=== PATIENT | male | born 1970 | race Caucasian/White ===

== ENCOUNTER 2018-03-14 07:00 | Emergency (ER) | payer SELFPAY ==
[2018-03-14] MEDS: ONDANSETRON (ODT) 4 MG TAB ODT (08:02)
[2018-03-14] MEDS: DICYCLOMINE 20 MG INJ IM (08:02)
== END 2018-03-14 08:56 | disposition left against medical advice (07) ==
LOC: FTE 08:56
DX: R10.32 Left lower quadrant pain (principal); Z76.5 Malingerer [conscious simulation]
CPT/HCPCS: 99282